=== PATIENT | male | born 1950 | race Caucasian/White ===

== ENCOUNTER 2023-11-28 11:59 | Inpatient (IN) | payer MEDICARE, OTHER ==
[~2023-11-28] VITALS: Ht 175.3 cm; Wt 45.0 kg
[2023-11-28 12:30] VITALS: PULSE 110; RESP 20; O2SAT 94
[2023-11-28 14:48] LABS: Hematocrit 31.9 % (41.0-53.0); Hemoglobin 10.7 g/dL (13.5-17.5); Mean Corpuscular Hemoglobin 29.4 pg (28.0-32.0); Mean Corpuscular Hgb Conc. 33.4 g/dL (32.0-36.0); Platelet Count (auto) 352 10^3/uL (140-450); Red Blood Cells 3.63 10^6/uL (4.5-5.90); Red Cell Distribution Width 14.5 % (11.8-14.3); White Blood Cell 11.2 10^3/uL (4.4-10.8)
[2023-11-28 14:53] LABS: Basophils % (manual) 0 (0.0-2.0); Blast Cells 0; Eosinophils % (manual) 0 (0-7); Metamyelocytes % 0; Myelocytes % 0; Promyelocytes % 0; Reactive Lymphocytes 0
[2023-11-28 14:56] LABS: Albumin 3.4 g/dL (3.2-4.8); Alkaline Phosphatase 105 U/L (46-116); Anion Gap 6 (5-15); Aspartate Aminotransferase 25 U/L (13-40); Bilirubin, Total 0.5 mg/dL (0.2-1.0); Blood Alcohol < 3.0 mg/dL (<10); Blood Urea Nitrogen 13 mg/dL (9-23); Calcium 9.5 mg/dL (8.7-10.4); Carbon Dioxide 29 mmol/L (20-31); Chloride 92 mmol/L (98-107); Glucose 85 mg/dL (74-106); Potassium 3.1 mmol/L (3.5-5.1); Sodium 127 mmol/L (136-145); Total Protein 5.6 g/dL (5.7-8.2)
[2023-11-28 15:00] LABS: Alanine Aminotransferase 28 U/L (7-40)
[2023-11-28 15:01] LABS: Band Neutrophils % (manual) 7; Lymphocytes % (manual) 1 (10.0-50.0); Monocytes % (manual) 7 (0-12)
[2023-11-28 15:02] LABS: Platelet Estimate Adequate; RBC Morphology Normal
[2023-11-28] MEDS ORDERED: METH4PAK3 (16:58)
[2023-11-28] MEDS ORDERED: CLOP75TA70 PO (16:58)
[2023-11-28] MEDS ORDERED: NORT25CA PO (16:58)
[2023-11-28] MEDS ORDERED: HYDR-4798 (16:58)
[2023-11-28] MEDS ORDERED: LATA0.008 EACHEYE (16:58)
[2023-11-28] MEDS ORDERED: EMPA1TAB PO (16:58)
[2023-11-28] MEDS ORDERED: FENO145T27 PO (16:58)
[2023-11-28] MEDS ORDERED: TIOTCAP PO (16:58)
[2023-11-28] MEDS ORDERED: PRED20TA2 PO (16:58)
[2023-11-28] MEDS ORDERED: ROSU40TA47 PO (16:58)
[2023-11-28] MEDS ORDERED: EZET-10 PO (16:58)
[2023-11-28] MEDS ORDERED: FLUT1AER7 INH (16:58)
[2023-11-28] MEDS ORDERED: ACETAMINOPHEN 325 MG TAB PO PRN (17:00)
[2023-11-28 19:50] VITALS: PULSE 93; RESP 11; O2SAT 99
[2023-11-28] MEDS: SODIUM CHLORIDE 0.9% 1,000 ML IV ONE (20:10)
[2023-11-28 20:55] VITALS: BP 128/67; PULSE 89; RESP 16; TEMP 98.3; O2SAT 98
[2023-11-28] MEDS: POTASSIUM EFFERVESENT TAB 25 MEQ PO ONE (20:58)
[2023-11-28] MEDS: SODIUM CHLORIDE 0.9% 1,000 ML IV SCH (21:02)
[2023-11-28 22:00] VITALS: BP 110/65; PULSE 87; RESP 16; TEMP 98.3; O2SAT 98
[2023-11-28] MEDS ORDERED: ASPI1TAB20 PO (23:38)
[2023-11-29] VITALS (7 sets, daily range): BP systolic 114–139; BP diastolic 59–63; PULSE 80–101; RESP 16–19; TEMP 97.5–99.4; O2SAT 95–98
[2023-11-29 07:06] LABS: Basophils # (auto) 0 10 ^3/uL (0-0.2); Basophils % (auto) 0.7 % (0.0-2.0); Eosinophils # (auto) 0 10 ^3/uL (0-0.8); Eosinophils % (auto) 0.1 % (0.0-7.0); Hematocrit 32.5 % (41.0-53.0); Hemoglobin 11.1 g/dL (13.5-17.5); Lymphocytes # (auto) 0.1 10 ^3/uL (0.4-5.4); Lymphocytes % (auto) 1.2 % (10.0-50.0); Mean Corpuscular Hemoglobin 29.9 pg (28.0-32.0); Mean Corpuscular Hgb Conc. 34.1 g/dL (32.0-36.0); Mean Corpuscular Volume 87.7 fL (80.0-100.0); Monocytes # (auto) 0.5 10 ^3/uL (0-1.3); Monocytes % (auto) 6.9 % (0.0-12.0); Neutrophils # (auto) 6.3 10 ^3/uL (1.6-8.6); Neutrophils % (auto) 91.1 % (37.0-80.0); Platelet Count (auto) 380 10^3/uL (140-450); Red Blood Cells 3.71 10^6/uL (4.5-5.90); Red Cell Distribution Width 14.7 % (11.8-14.3)
[2023-11-29 07:26] LABS: Alanine Aminotransferase 33 U/L (7-40); Albumin 3.7 g/dL (3.2-4.8); Alkaline Phosphatase 115 U/L (46-116); Anion Gap 6 (5-15); Aspartate Aminotransferase 38 U/L (13-40); BUN/Creatinine Ratio 31.7 (10.0-20.0); Blood Urea Nitrogen 13 mg/dL (9-23); Calcium 9.8 mg/dL (8.7-10.4); Carbon Dioxide 30 mmol/L (20-31); Chloride 95 mmol/L (98-107); Glucose 61 mg/dL (74-106); Potassium 3.7 mmol/L (3.5-5.1); Sodium 131 mmol/L (136-145)
[2023-11-29 07:27] LABS: Bilirubin, Total 0.5 mg/dL (0.2-1.0)
[2023-11-29] MEDS ORDERED: NORTRIPTYLINE HCL 25 MG CAP PO SCH (10:00)
[2023-11-29] MEDS: FENOFIBRATE 145 MG PEG SCH (10:00)
[2023-11-29] MEDS ORDERED: CLOPIDOGREL BISULFATE 75 MG TAB PO SCH (10:00)
[2023-11-29] MEDS ORDERED: EZETIMIBE 10 MG TAB PO SCH (10:00)
[2023-11-29] MEDS ORDERED: FENOFIBRATE 145 MG PO SCH (10:00)
[2023-11-29] MEDS ORDERED: NORTRIPTYLINE HCL 25 MG CAP PEG SCH (10:00)
[2023-11-29] MEDS: CLOPIDOGREL BISULFATE 75 MG TAB PEG SCH (12:07)
[2023-11-29] MEDS: EZETIMIBE 10 MG TAB PEG SCH (12:07)
[2023-11-29] MEDS: ENOXAPARIN SOD 40 MG/0.4 ML SYRINGE SC SCH (12:07)
[2023-11-29] MEDS: ATORVASTATIN 20 MG TAB PO SCH (22:00)
[2023-11-30] VITALS (7 sets, daily range): BP systolic 108–137; BP diastolic 59–69; PULSE 66–97; RESP 16–18; TEMP 37.6; O2SAT 95–98
[2023-11-30 08:10] LABS: Chloride 97 mmol/L (98-107); Potassium 3.5 mmol/L (3.5-5.1); Sodium 134 mmol/L (136-145)
[2023-11-30 08:11] LABS: Anion Gap 11 (5-15); Calcium 9.7 mg/dL (8.7-10.4); Carbon Dioxide 26 mmol/L (20-31)
[2023-11-30 08:16] LABS: BUN/Creatinine Ratio 37.5 (10.0-20.0); Blood Urea Nitrogen 15 mg/dL (9-23); Glucose 51 mg/dL (74-106)
[2023-11-30] MEDS: EZETIMIBE 10 MG TAB PEG SCH (10:30)
[2023-11-30 12:14] LABS: Urine Bacteria None Seen /hpf (None Seen)
[2023-11-30] MEDS: POTASSIUM CHL 20MEQ/100ML 100 ML IV SCH (12:30)
[2023-11-30 12:34] LABS: Urine Blood 1+ /uL (Negative); Urine Clarity Clear (Clear); Urine Color Yellow (Yellow); Urine Mucus FEW (None Seen); Urine Protein, UAD TRACE (Negative); Urine Specific Gravity 1.022 (1.001-1.035); Urine Urobilinogen Normal (Negative); Urine WBC 2 /hpf (0 - 3)
[2023-11-30] MEDS: Glucerna 1.2 Cal 1Liter BOTTLE GT SCH (14:52)
== END 2023-11-30 17:30 | disposition home health service (06) | DRG 640 ==
LOC: ER 11:59 → EDBD 11:59 → EDUNIT# 11:59 → OVERFLOW 16:56 → WEST WING 20:40
PROVIDERS: ADMIT Internal Medicine; ATTEND Surgery
DX: E87.6 Hypokalemia (principal); G93.41 Metabolic encephalopathy; Z68.1 Body mass index [BMI] 19.9 or less, adult; E87.1 Hypo-osmolality and hyponatremia; E78.5 Hyperlipidemia, unspecified; C14.0 Malignant neoplasm of pharynx, unspecified; I25.5 Ischemic cardiomyopathy; I73.9 Peripheral vascular disease, unspecified; I71.9 Aortic aneurysm of unspecified site, without rupture; I35.0 Nonrheumatic aortic (valve) stenosis; E11.9 Type 2 diabetes mellitus without complications; Z66 Do not resuscitate; R62.7 Adult failure to thrive
CPT/HCPCS: 36415; 70450; 71045; 80048; 80053; 80320; 81001; 83036; 83735; 84443; 84484; 85007; 85025; 85027; 93005; 93306; 96360; G0378; J3480